=== PATIENT | female | born 1980 | race Caucasian/White ===

== ENCOUNTER → 2017-02-01 | Outpatient (CLI) | payer SELFPAY ==
[~2017-02-01] MED LIST: BIRTH CONTROL PILL PO; CYMBALTA PO; EMBREL; OTEZLA30 MG PO; VITAMIN D310000 UNIT PO; ZOLOFT; [UNRECOGNIZED DRUG - OTHER] PO
--- NOTE | ~2017-02-01 | EKG ---
PATIENT: AREN MIGUEL UNIT #: [id number] Ventricular Rate: 82 BPM Atrial Rate: 82 BPM P-R Interval: 108 ms QRS Duration: 80 ms Q-T Interval: 360 ms QTC Calculation(Bezet): 420 ms P [place]: 25 degrees Calculated R [place]: 32 degrees Calculated T [place]: 14 degrees Diagnosis Line: Sinus rhythm with short MI Diagnosis Line: Otherwise normal ECG Diagnosis Line: No previous ECGs available Diagnosis Line: Confirmed by LILLI BURR MD ([id number]) on Diagnosis Line: 02/03/2017 11:13:44 PM INTERPRETING MD: LENO LEE
--- NOTE | ~2017-02-01 | CR63 ---
[facility] A Service of [facility] & [facility] RADIOLOGY TEXT RESULTS PATIENT: AREN MIGUEL LOCATION: [facility] : 78 UNIT #: [id number] AGE: [address]: Ector Modi III, MD SEX: F ORDER DR: [id number] [facility] [address] [place], [place] [address] [id number] O MR#: [id number] Acc #: [id number] NAME: AREN MIGUEL : 1980 SEX: F STUDY DATE/TIME: 02/01/2017 8:21 UNIT: [facility] ROOM: STUDY DESCRIPTION: CR Chest 2 View Attending Physician: Ector Modi III, M.D. Referring Physician: Ector Modi III, M.D. Ordering Physician: Ector Modi III, M.D. Primary Care Physician: Oli Dsouza M.D. MEDICAL IMAGING REPORT This report is preliminary unless electronic signature is present EXAM Chest, 02/01/2017 HISTORY 36-year-old woman preop clearance for laparoscopic adjustable gastric band placement and possible paraesophageal hernia repair. COMPARISON Portable chest, 12/06/2005 FINDINGS Two-view chest demonstrates normal cardiac size and configuration. Hilar structures and mediastinal contours are preserved. Bilateral lungs are expanded and clear. IMPRESSION Negative chest. Dictated by... Emanuel Hernandez M.D. THIS IS AN ELECTRONICALLY VERIFIED REPORT Emanuel Hernandez M.D. at 02/01/2017 10:34 AM Hanna TD: 02/01/2017 10:22 JOB #: [id number] MEDICAL IMAGING REPORT Page 1 of 1 COPY
--- NOTE | ~2017-02-01 | CR97 ---
[facility] A Service of [facility] & [facility] & [facility] RADIOLOGY TEXT RESULTS PATIENT: AREN MIGUEL LOCATION: [facility] : 78 UNIT #: [id number] AGE: [address]: Ector Modi III, MD SEX: F ORDER DR: [id number] [facility] [address] [place], [place] [address] [id number] O MR#: [id number] Acc #: [id number] NAME: AREN MIGUEL : 1980 SEX: F STUDY DATE/TIME: 02/01/2017 8:33 UNIT: [facility] ROOM: STUDY DESCRIPTION: CR Esophagram Attending Physician: Ector Modi III, M.D. Referring Physician: Ector Modi III, M.D. Ordering Physician: Ector Modi III, M.D. Primary Care Physician: Oli Dsouza M.D. MEDICAL IMAGING REPORT This report is preliminary unless electronic signature is present EXAM Barium esophagram. INDICATIONS Morbid obesity, preop for Lap-Band surgery. FLUOROSCOPY TIME 0.4 minutes and 5 images were taken. FINDINGS The thoracic esophagus is normal in course and caliber. No evidence for hiatal hernia. Mild tertiary contractions are noted. IMPRESSION Mild tertiary contractions, otherwise, unremarkable. Dictated by... Gokul Faust M.D. THIS IS AN ELECTRONICALLY VERIFIED REPORT Gokul Faust M.D. at 02/04/2017 7:25 AM JANINE/paulino TD: 02/01/2017 17:06 JOB #: [id number] MEDICAL IMAGING REPORT Page 1 of 1 COPY
[2017-02-01 09:52] LABS: HEMATOCRIT 36.3 % (35.0-45.0); HEMOGLOBIN 11.9 gm/dL (12.0-16.0); MEAN CELL VOLUME 79.1 FL (83-96); MEAN CORPUSCULAR HGB CONC 32.8 g/dL (30-36); MEAN PLATELET VOLUME 7.7 FL (6.5-11.5); RED BLOOD COUNT 4.59 X10e (3.90-5.30); RED CELL DISTRIBUTION WIDTH 15.4 % (11.0-15.5); WHITE BLOOD COUNT 9.1 X10e3 (4.0-10.5)
[2017-02-01 10:18] LABS: ALBUMIN SERUM 3.8 g/dL (3.5-5.0); BILIRUBIN,TOTAL 0.5 mg/dL (0.2-2.0); BUN/CREATININE RATIO 18.33; CALCIUM SERUM 8.9 mg/dL (8.4-10.2); CREATININE SERUM 0.6 mg/dL (0.6-1.4); GLOM FILT RATE Estimated 115.6 mL/min (>60); POTASSIUM 4.5 mmol/L (3.5-5.1); PROTEIN TOTAL SERUM 7.2 g/dL (6.0-8.3)
== END | disposition home or self-care (01) ==
LOC: CRAD 07:48 → CAMB 08:30
PROVIDERS: Surgery
DX: Z01.818 Encounter for other preprocedural examination (principal); E66.01 Morbid (severe) obesity due to excess calories
CPT/HCPCS: 36415; 71020; 74220; 80053; 80061; 84443; 85027; 93005

== ENCOUNTER 2017-02-13 06:41 | Inpatient (IN) | payer SELFPAY ==
[~2017-02-13] VITALS: Ht 168.9 cm; Wt 102.0 kg
--- NOTE | ~2017-02-13 | CR72 ---
[facility] A Service of [facility] & [facility] RADIOLOGY TEXT RESULTS PATIENT: AREN MIGUEL LOCATION: [facility] [id number] : 78 UNIT #: [id number] AGE: [address]: Ector Modi III, MD SEX: F ORDER DR: [id number] [facility] [address]. [place], [place] [address] [id number] I MR#: [id number] Acc #: [id number] NAME: AREN MIGUEL : 1980 SEX: F STUDY DATE/TIME: 02/14/2017 UNIT: [facility] ROOM: 3 STUDY DESCRIPTION: CR Chest Single View Portable Attending Physician: Ector Modi III, M.D. Ordering Physician: Bunny Caruso M.D. Primary Care Physician: Oli Dsouza M.D. MEDICAL IMAGING REPORT This report is preliminary unless electronic signature is present EXAM Chest portable 02/14/2017 1300 hours HISTORY Shortness of air for 1 day. COMPARISON 02/13/2017 FINDINGS Portable upright chest demonstrates persistently low lung volumes. There is perihilar vascular crowding and some linear density at the left base, unchanged. There is no pleural effusion or pneumothorax. IMPRESSION Persistent low lung volumes with stable linear density at the left base, likely atelectasis or scar. This appears stable. There is no effusion or pneumothorax. Dictated by... Kamila Sevilla M.D. THIS IS AN ELECTRONICALLY VERIFIED REPORT Kamila Sevilla M.D. at 02/14/2017 5:41 PM Ty TD: 02/14/2017 15:48 JOB #: [id number] MEDICAL IMAGING REPORT Page 1 of 1 COPY
--- NOTE | ~2017-02-13 | CR72 ---
[facility] A Service of [facility] & [facility] RADIOLOGY TEXT RESULTS PATIENT: AREN MIGUEL [facility] 76 UNIT #: [id number] AGE: [address]: Ector Modi III, MD SEX: F ORDER DR: [id number] [facility] [address] [place], [place] [address] [id number] O MR#: [id number] Acc #: [id number] NAME: AREN MIGUEL : 1980 SEX: F STUDY DATE/TIME: 02/13/2017 16:23 UNIT: [facility] ROOM: STUDY DESCRIPTION: CR Chest Single View Portable Attending Physician: Ector Modi III, M.D. Ordering Physician: Ector Modi III, M.D. Primary Care Physician: Oli Dsouza M.D. MEDICAL IMAGING REPORT This report is preliminary unless electronic signature is present EXAM Portable chest, 02/13/2017. INDICATIONS Chest pain after gastric band placement today. COMPARISON AP portable chest is compared with 02/01/2017. FINDINGS Lung volumes are quite low, and there is some very mild atelectasis in the bases. No pneumothorax. Heart size normal. Gastric band is present. Dictated by... Lamin Cm Jr., M.D. THIS IS AN ELECTRONICALLY VERIFIED REPORT Lamin Cm Jr., M.D. at 02/14/2017 7:16 AM ASAD/jesenia TD: 02/13/2017 17:33 JOB #: [id number] MEDICAL IMAGING REPORT Page 1 of 1 COPY
--- NOTE | ~2017-02-13 | CR7 ---
[facility] A Service of [facility] RADIOLOGY TEXT RESULTS PATIENT: AREN MIGUEL LOCATION: [facility] : 78 UNIT #: [id number] AGE: [address]: Ector Modi III, MD SEX: F ORDER DR: [id number] [place] [id number] [facility] [place], [place] [address] [id number] O MR#: [id number] Acc #: [id number] NAME: AREN MIGUEL : 1980 SEX: F STUDY DATE/TIME: 02/13/2017926 UNIT: [facility] ROOM: STUDY DESCRIPTION: CR Abdomen Single AP View Attending Physician: Ector Modi III, M.D. Ordering Physician: Ector Modi III, M.D. Primary Care Physician: Oli Dsouza M.D. MEDICAL IMAGING REPORT This report is preliminary unless electronic signature is present EXAM Abdomen, portable, 02/13/2017, 0927 hours. CLINICAL HISTORY 36-year-old woman with morbid obesity. Patient complains of abdominal pain. Lap-band placement today. COMPARISON Preop esophagram, 02/01/2017. FINDINGS Portable supine view of the abdomen demonstrates a new Lap-Band overlying the left T11 costovertebral junction oriented at 55 degrees from vertical. Radiopaque tubing courses inferiorly to a port projecting to the left of the left L5 transverse process. Bowel gas pattern is unremarkable. IMPRESSION Postop Lap-Band placement with band overlying the left T11 costovertebral junction oriented at 55 degrees. Radiopaque tubing courses inferiorly to a port projecting to the left of the L5 transverse process. Dictated by... Kamila Sevilla M.D. THIS IS AN ELECTRONICALLY VERIFIED REPORT Kamila Sevilla M.D. at 02/13/2017 2:35 PM RICK/andres TD: 02/13/2017 10:51 JOB #: [id number] [facility] A Service of [facility] RADIOLOGY TEXT RESULTS PATIENT: AREN MIGUEL [id number] : [birth year] UNIT #: [id number] AGE: [address]: Ector Modi III, MD SEX: F ORDER DR: MEDICAL IMAGING REPORT Page 1 of 1 COPY
--- NOTE | ~2017-02-13 | EKG ---
PATIENT: AREN MIGUEL UNIT #: [id number] Ventricular Rate: 105 BPM Atrial Rate: 105 BPM P-R Interval: 116 ms QRS Duration: 76 ms Q-T Interval: 310 ms QTC Calculation(Bezet): 409 ms P [place]: 51 degrees Calculated R [place]: 57 degrees Calculated T [place]: 12 degrees Diagnosis Line: Sinus tachycardia Diagnosis Line: Nonspecific T wave abnormality Diagnosis Line: Abnormal ECG Diagnosis Line: When compared with ECG of 13-FEB-2017 16:26, Diagnosis Line: Premature ventricular complexes are no longer Diagnosis Line: Present Diagnosis Line: Confirmed by COLLEEN MARCANO MD ([id number]) on 02/16/2017 Diagnosis Line: 8:13:11 AM INTERPRETING MD: KRYS LEE
--- NOTE | ~2017-02-13 | CO ---
Unit #: [id number] #: [id number] Patient: AREN MIGUEL [id number] [address] [place], [place] [address] [id number] MR#: [id number] NAME: AREN MIGUEL ROOM: [facility] Age: 36 Sex: F Admission Date: 02/13/2017 : 1980 Attending Physician: Ector Modi III, M.D. Primary Care Physician: Oli Dsouza M.D. Consultation Date: 02/13/2017 CONSULTATION REPORT REASON FOR ADMISSION Hypotension. HISTORY OF PRESENT ILLNESS Ms. Miguel is a 36-year-old white female who underwent elective bariatric surgery with a lap band insertion earlier this morning. Following the surgery the patient has had problems related to hypotension with blood pressure being as low as 70 mm systolic, and she was started on intravenous fluids. Despite 3.5 liters of intravenous fluid resuscitation, the patient's blood pressure continues to be low and we were asked to see her. She has not had any urine output since her surgery this morning. At the time of my arrival the patient was complaining of pain localized to both inframammary regions, described as sharp shooting pain made worse on deep inspiration, radiating to the right infrascapular region, without any radiation to the retrosternal area. There was no pressure or heaviness in the chest. The patient complained of "shortness of breath," but on direct questioning she admits that it is the painful inspiration which makes her short of breath. She denies any palpitations, is not nauseated and has not been diaphoretic with these pains. She has never experienced similar pains before. The patient considers herself reasonably active. She works as an insurance broker. She has no history of chest discomfort on day-to-day activities. She can walk in a shopping mall without reproducing shortness of breath or chest pain. She denies any history of heart murmur, rheumatic fever, leg edema, orthopnea, nocturnal dyspnea, dizziness, lightheadedness, syncope, near syncope. There is no history of an abnormal EKG and preoperative EKG was also thought to be normal. She has mild hyperlipidemia and gives a history of gestational diabetes mellitus. PAST MEDICAL HISTORY She is the mother of two children, the youngest child being 4.5. During that she was told to have gestational diabetes mellitus. There is no history of eclampsia or preeclampsia. She had a spontaneous during second at 17 weeks. SOCIAL HISTORY She is a nonsmoker heart and a teetotaler. FAMILY HISTORY Positive for her father having heart disease, the nature of which is not known to her. One brother is known to have an athlete's heart. There is no history of myocardial infarction in the family. Unit #: [id number] #: [id number] Patient: AREN MIGUEL PHYSICAL EXAMINATION GENERAL: Young white female who is obese, is uncomfortable, lying semirecumbent in bed because of abdominal pain and inframammary pain. VITALS: Heart rate is 70-90 per minute. Blood pressure is 90/60 mmHg. NECK: There is no jugular venous distension. CHEST: Normal to palpation. There is tenderness on percussion in both inframammary regions. There is diminished air entry in both bases. There are no rales or rhonchi. There are no pericardial friction rubs. HEART: Apical impulse is not palpable. First heart sound is normal. Second heart sound is physiologically split. There is no murmur or gallop. No pericardial friction rub is audible. ABDOMEN: Surgical dressings over abdominal wall stab wounds for laparoscopic procedure performed. There is marked tenderness all over the abdomen. Bowel sounds are absent. RECTAL: Not done. NEUROLOGIC: ELECTRONIC SPECIALIST examination is within normal limits. DIAGNOSTIC STUDIES IMAGING: Chest x-ray shows bilaterally elevated hemidiaphragms because of supine position. Heart size appears normal. There is mild increase in the interstitial markings, probably secondary to vascular crowding. LABORATORY: Hemoglobin preoperatively was 11.9 and at the time of my examination hemoglobin is 6.8. White blood cell count was 23,700 postoperatively. Platelet count is normal at 494,000. BMP shows serum creatinine is 0.8, BUN 13, sodium 137, potassium 4.0, magnesium has not been checked. Liver function studies preoperatively were normal. Alkaline phosphatase was mildly elevated to 98. LDL was 151 with total cholesterol 219. TSH was 2.04. CARDIOVASCULAR: EKG preoperatively showed normal sinus rhythm and within normal limits. Postoperative EKG shows T wave inversion in leads V4, V5 and V6 and an isolated PVC. ASSESSMENT 1. Hypotension, probably secondary to blood loss. 2. Cannot rule out acute kidney injury secondary to hypotension. 3. Inframammary chest pains may be secondary to subdiaphragmatic irritation from gas or secondary to bibasilar atelectasis. 4. Obesity. 5. Status post lap band surgery earlier today. PLAN 1. CT scan of the abdomen and pelvis will be done to rule out any intraperitoneal blood loss as a cause of significant drop in hemoglobin. 2. Serum amylase and lipase would be checked because occasionally pancreatitis could cause T wave abnormalities. 3. T wave abnormalities secondary to ischemia have to be ruled out and cardiac enzymes would be checked and repeated tomorrow morning, though it is unlikely a 36-year-old nonsmoker euglycemic patient with no chest pains to suggest ischemic heart disease would have changes related to perfusion abnormalities. 4. I will check an echocardiogram and Doppler study tomorrow morning. 5. Careful watch on urine output has to be maintained and blood loss anemia treated. Unit #: [id number] #: [id number] Patient: AREN MIGUEL Will follow the patient with you. Thank you very much for associating us in the care of Ms. Miguel. Dictated by... Bunny Caruso M.D. CARROL/denzel TD: 02/14/2017 08:08 JOB #: [id number] CONSULTATION REPORT Page 1 of 1 X Bunny Caruso MD CONSULTATION REPORT
--- NOTE | ~2017-02-13 | CT2 ---
[facility] A Service of [facility] & [facility] RADIOLOGY TEXT RESULTS PATIENT: AREN MIGUEL LOCATION: [facility] 463-01 : [birth year] UNIT #: [id number] AGE: [address]: Ector Modi III, MD SEX: F ORDER DR: [id number] [facility] [address] [place], [place] [address] [id number] O MR#: [id number] Acc #: [id number] NAME: AREN MIGUEL : 1980 SEX: F STUDY DATE/TIME: 02/13/2017 17:27 UNIT: [facility] ROOM: STUDY DESCRIPTION: CT Abd and Pelv W Cont Attending Physician: Ector Modi III, M.D. Ordering Physician: Ector Modi III, M.D. Primary Care Physician: Oli Dsouza M.D. MEDICAL IMAGING REPORT This report is preliminary unless electronic signature is present EXAM CT abdomen and pelvis HISTORY Lap-Band surgery today, hemoglobin dropping, no urine output today while in recovery, bloating, gas, abdomen pain. TECHNIQUE CT abdomen and pelvis performed with intravenous administration of 100 mL Isovue 370. This CT exam was performed with one or more of the following radiation dose reduction techniques: automatic exposure control, adjustment of mA and/or kV according to patient size, and iterative reconstruction. COMPARISON No comparisons CTs of abdomen and pelvis. FINDINGS Dependent atelectasis bilateral lung bases. Small bilateral pleural effusions. Not drainable fluid collections. The liver is unremarkable. Small to moderate volume of fluid in the abdomen and pelvis most pronounced in the pelvis. It contains some hyperdense material and is consistent with evolving hemoperitoneum. I do not see evidence of active extravasation at the time of this examination. There is a small amount of pneumoperitoneum as well. The patient is status post Lap-Band device placement today and the pneumoperitoneum component is felt related to the patient's operative procedure. There is some extraperitoneal products of hemorrhage along the anterior abdomen immediately subjacent to the anterior abdominal wall. The Lap-Band device band component appears normally positioned at level of the gastroesophageal junction. The catheter component appears intact and the port component is implanted over the left lower hemiabdomen. There are small foci of air in the anterior abdominal wall, consistent with recent operative intervention. Liver, STS. [facility] A Service of [facility] & [facility] RADIOLOGY TEXT RESULTS PATIENT: AREN MIGUEL LOCATION: [facility] : [birth year] UNIT #: [id number] AGE: [address]: Ector Modi III, MD SEX: F ORDER DR: gallbladder, spleen, pancreas, adrenal glands, kidneys unremarkable. CT Pelvis: Urinary bladder mildly distended likely physiologic in nature. The uterus unremarkable. No primary adnexal/ovarian abnormality is suggested. There is no pelvic or retroperitoneal adenopathy. The distal esophagus is unremarkable. The small bowel and appendix are unremarkable. Colon unremarkable. There is soft tissue swelling in the left rectus abdominus muscle. There may be a component of left rectus sheath hematoma. Again I do not see active extravasation. I do not see a definite hyperdense material within the left rectus sheath. The soft tissue swelling could simply be postoperative edema. Aorta is normal in caliber. The bony structures show no acute abnormality. IMPRESSION 1. Findings discussed with Dr. Modi at time of this dictation. Hemoperitoneum. Small to moderate volume of mixed density fluid in the abdomen and pelvis predominately in the pelvis with components of hyperdense material felt to represent organized thrombus. At the time of this examination, I see no active extravasation. Followup to resolution of findings recommended. 2. There is a small amount of pneumoperitoneum present felt to be within normal limits for the patient's operative procedure today. 3. Soft tissue swelling in the left rectus abdominus muscle. This may simply reflect postoperative edema. The possibility of some component of rectus sheath hematoma not excluded though I do not see hyperdense products of hemorrhage within the rectus sheath and there is no evidence of active bleeding within the rectus sheath. 4. Small foci of air density in the anterior abdominal wall also favored to reflect the patient's operative intervention today. 5. Bibasilar airspace disease probably atelectatic in nature. Small bilateral pleural effusions. Not drainable fluid collections. 6. Gallbladder, pancreas, kidneys, appendix unremarkable. Remainder of alimentary canal notable only for anticipated postoperative changes of Lap-Band device placement. 7. Please see remainder of ancillary findings in body of report above. Dictated by... Mandeep Coburn M.D. THIS IS AN ELECTRONICALLY VERIFIED REPORT Mandeep Coburn M.D. at 02/14/2017 1:21 PM TAMRAK/benton TD: 02/13/2017 20:17 JOB #: [id number] MEDICAL IMAGING REPORT [facility] A Service of [facility] RADIOLOGY TEXT RESULTS PATIENT: AREN MIGUEL LOCATION: [place] [address] : [birth year] UNIT #: [id number] AGE: [address]: Ector Modi III, MD SEX: F ORDER DR: Page 1 of 1 COPY
--- NOTE | ~2017-02-13 | EKG ---
PATIENT: AREN MIGUEL UNIT #: [id number] Ventricular Rate: 116 BPM Atrial Rate: 116 BPM P-R Interval: 118 ms QRS Duration: 70 ms Q-T Interval: 326 ms QTC Calculation(Bezet): 453 ms P [place]: 36 degrees Calculated R [place]: 15 degrees Calculated T [place]: 9 degrees Diagnosis Line: Sinus tachycardia with occasional Premature Diagnosis Line: ventricular complexes Diagnosis Line: Nonspecific T wave abnormality Diagnosis Line: Abnormal ECG Diagnosis Line: When compared with ECG of 13-FEB-2017 12:29, Diagnosis Line: (unconfirmed) Diagnosis Line: Premature ventricular complexes are now Present Diagnosis Line: Nonspecific T wave abnormality, worse in Inferior Diagnosis Line: leads Diagnosis Line: Nonspecific T wave abnormality, worse in Diagnosis Line: Anterolateral leads Diagnosis Line: Confirmed by COLLEEN MARCANO MD ([id number]) on 02/13/2017 Diagnosis Line: 7:50:13 PM INTERPRETING MD: KRYS LEE
--- NOTE | ~2017-02-13 | EKG ---
PATIENT: AREN MIGUEL UNIT #: [id number] Ventricular Rate: 100 BPM Atrial Rate: 100 BPM P-R Interval: 112 ms QRS Duration: 82 ms Q-T Interval: 370 ms QTC Calculation(Bezet): 477 ms P [place]: 36 degrees Calculated R [place]: 14 degrees Calculated T [place]: 40 degrees Diagnosis Line: Normal sinus rhythm Diagnosis Line: Normal ECG Diagnosis Line: When compared with ECG of 01-FEB-2017 09:04, Diagnosis Line: QT has lengthened Diagnosis Line: Confirmed by COLLEEN MARCANO MD ([id number]) on 02/13/2017 Diagnosis Line: 7:47:44 PM INTERPRETING MD: KRYS LEE
--- NOTE | ~2017-02-13 | OR ---
Unit #: [id number] #: [id number] Patient: AREN MIGUEL [id number] [facility] [address]. [place], [place] [address] [id number] MR#: [id number] NAME: AREN MIGUEL ROOM: 463 Date of Procedure: 02/13/2017 Admission Date: 02/13/2017 Surgeon: Ector Modi III, M.D. : 1980 Attending Physician: Ector Modi III, M.D. Primary Care Physician: Oli Dsouza M.D. OPERATIVE REPORT PREOPERATIVE DIAGNOSIS Chronic obesity. POSTOPERATIVE DIAGNOSIS Chronic obesity. SECONDARY DIAGNOSES Anterior paraesophageal hernia. PROCEDURES PERFORMED Laparoscopic adjustable gastric banding (AP standard with low-profile port) and laparoscopic paraesophageal hernia repair. AIR ANTISUBMARINE OFFICER Mandeep Larsen M.D. SPECIMENS None. COMPLICATIONS None apparent. ESTIMATED BLOOD LOSS Minimal. INDICATIONS FOR PROCEDURE This is a 35-year-old lady, who has chronic obesity with a BMI of 32. She has been through the bariatric program at [facility] and understands risks and benefits of the procedure. DESCRIPTION OF PROCEDURE After consent was obtained, including the risks and benefits of slippage, erosion, port dysfunction, and possible failure of weight loss due to noncompliance, the patient was taken to the operating room and placed in the supine position. General anesthetic was administered and the abdomen was prepped and draped in standard surgical fashion. I began by making a 2 cm incision just above and to the left of the umbilicus. I used a Visiport to enter the peritoneal cavity without any difficulty. C02 pneumoperitoneum was then established. Next, I placed a 5 mm port in the right upper quadrant, a 5 mm Stefanie liver retractor in the subxiphoid region to provide exposure of the gastroesophageal Unit #: [id number] #: [id number] Patient: AREN MIGUEL. Next, a 10 mm port was placed in the left upper quadrant and a 5 mm port was placed in the left lateral subcostal region. I began by performing an examination of the GE junction to evaluate for a hiatal hernia. We then scored the peritoneal attachments overlying the angle of His. I then opened up the clear space in the gastrohepatic ligament, and then using 2 blunt graspers, I identified the small fat pad crossing over the right crura. I swept the fat anterior to the crura off the crura and using the pars flaccida, I created a retrogastric tunnel where the blunt grasper exited at the angle of His. Once I had made this tunnel safely, I then inserted an Allergan AP band into the abdominal cavity. This adjustable gastric band was then place around the upper part of the stomach and fastened and buckled anteriorly. We then tacked the lateral fundus over the band to the proximal pouch with 2 interrupted 0 Ethibond sutures. I then used a third stitch to imbricate the excess anterior stomach by going from the lesser curvature up towards where the last stitch was placed. We then had excellent hemostasis. I removed the Stefanie liver retractor. We then removed the port tubing through the initial port incision. The rest of the ports were removed, and the pneumoperitoneum was released. I then left a small tail on the tubing. We then attached the port to the excess band tubing. We placed a piece of Prolene mesh along the back side of the port and used a Prolene stitch to anchor this mesh in place. We then trimmed the excess mesh so that just a small footprint of mesh was in place behind the port. I then inserted the tubing back into the abdominal cavity, and we placed the port into a small pocket that was made just inferior to where our initial port incision was made. The mesh was in direct contact with the fascia, and this will scar in place to hold the port in place. We then injected all the port sites with 0.25% plain Marcaine, and I reapproximated the skin edges with interrupted 4-0 Vicryl subcuticular sutures. Steri-strips were then applied. The patient tolerated the procedure without any problems and returned to the recovery room in stable condition. ADDENDUM After exposure of the GE junction, the patient was noted to have a small to medium size anterior paraesophageal hernia. I scored the phrenoesophageal ligament, reduced the hernia defect and after identifying both the right and left crura, I reapproximated the defect with an interrupted 0 Ethibond wnedhw-[id number]-jkior suture. I then proceeded with the case as listed above. Dictated by... Ector Modi III, M.D. VCL/mya TD: 02/14/2017 00:33 JOB #: [id number] Unit #: [id number] #: [id number] Patient: AREN MIGUEL OPERATIVE REPORT Page 1 of 1 X Ector Modi III, MD X PROCEDURE OPERATIVE NOTE
--- NOTE | ~2017-02-13 | CO ---
Unit #: [id number] #: [id number] Patient: AREN MIGUEL [id number] [facility]. [place], [place] [address] [id number] MR#: [id number] NAME: AREN MIGUEL ROOM: 463 Age: 36 Sex: F Admission Date: 02/13/2017 : 1980 Attending Physician: Ector Modi III, M.D. Primary Care Physician: Oli Dsouza M.D. CONSULTATION REPORT HISTORY Ms. Miguel is a 36-year-old female who underwent Lap-Band procedure today for chronic morbid obesity. We were called to see the patient for ICU consultation. Postoperatively she was transported to the postop floor. She became hypotensive. She was bolused with fluid and has received 4 liters of fluid, and her blood pressure has stabilized at this point. She did receive some short, small doses of Navin-Synephrine apparently. She has been seen by Dr. Caruso. H and H's have been checked and show a fall in hemoglobin. Her pre-op hemoglobin on February 01 was 11.1. Today at noon after surgery, it was 8.3, and presently at 4:17 p.m. it has fallen to 6.8. Her initial white count on the was 9,100, and today at noon it was 23,700. She said she was in her normal state of health preoperatively. She had no fever, chills, sweats, chest pain, nausea or vomiting. Her chest x-ray reveals low lung volumes, possibly some minimal atelectasis in the bases but no major consolidation or significant infiltrate or pulmonary vascular congestion. PAST MEDICAL HISTORY Significant for some anxiety, depression, allergic rhinitis. She has some psoriasis. ALLERGIES She has no known allergies. HOME MEDICATIONS She is on methylphenidate ER, Otezla and vitamin D. FAIR HISTORIAN Some depression and anemia, cholesterol, hypertension. SOCIAL HISTORY Drinks 7 or less drinks per week. Denies illicit drug use. Never smoker. REVIEW OF SYSTEMS Negative, as noted above. PHYSICAL EXAMINATION GENERAL: White female. VITAL SIGNS: Blood pressure is 102/62, pulse 122, respiratory rate 18, afebrile. HEENT: Normocephalic, atraumatic. Pupils are equal, round and reactive. Appears pale. NECK: Neck is supple. Trachea midline. RESPIRATORY: Lungs clear anteriorly and laterally. Unit #: [id number] #: [id number] Patient: AREN MIGUEL CARDIAC: Tachycardic. Could not appreciate murmur, rub or gallop. ABDOMEN: Tender, postop. EXTREMITIES: Without clubbing, cyanosis or edema. No obvious bruising could be seen on her sides. DIAGNOSTIC STUDIES LABORATORY STUDIES: As noted. IMPRESSION Hypotension, likely secondary to blood loss. PLAN She is scheduled for CT of the abdomen and pelvis. Dr. Caruso is seeing. Will rule out SC. Echocardiogram has been ordered. Agree with checking amylase and lipase. Will support on pressors as needed, support in ICU, place on supplemental oxygen. SCD hose. Type and cross and transfuse. Further recommendations pending this. Dictated by... Titus Morales M.D. KELLY/surjit TD: 02/14/2017 09:15 JOB #: [id number] CONSULTATION REPORT Page 1 of 1 X Titus Morales MD X CONSULTATION REPORT
[~2017-02-13 06:41] MED LIST changes: -OTEZLA30 MG PO; -VITAMIN D310000 UNIT PO; -[UNRECOGNIZED DRUG - OTHER] PO
[2017-02-13] MEDS ORDERED: [UNRECOGNIZED DRUG - OTHER] PO (09:04)
[2017-02-13] MEDS ORDERED: OTEZLA30 MG PO (09:04)
[2017-02-13] MEDS ORDERED: VITAMIN D310000 UNIT PO (09:05)
[2017-02-13 12:44] LABS: BASOPHIL# 0.1 X10e3 (0-0.3); BASOPHIL% 0.2 % (0-2.5); HEMATOCRIT 25.4 % (35.0-45.0); HEMOGLOBIN 8.3 gm/dL (12.0-16.0); LYMPHOCYTE# 0.8 X10e3 (1.0-3.5); LYMPHOCYTE% 3.5 % (17.0-45.0); MEAN CELL VOLUME 80.5 FL (83-96); MEAN CORPUSCULAR HEMOGLOBIN 26.2 PG (28-34); MEAN CORPUSCULAR HGB CONC 32.6 g/dL (30-36); MEAN PLATELET VOLUME 7.5 FL (6.5-11.5); MONOCYTE# 0.4 X10e3 (0-1.0); MONOCYTE% 1.6 % (3.0-12.0); NEUTROPHIL# 22.5 X10e3 (1.5-7.1); NEUTROPHIL% 94.7 % (40-75); PLATELET COUNT 494 X10e3 (140-420); RED BLOOD COUNT 3.16 X10e (3.90-5.30); RED CELL DISTRIBUTION WIDTH 15.2 % (11.0-15.5); WHITE BLOOD COUNT 23.7 X10e3 (4.0-10.5)
[2017-02-13 12:46] LABS: DIFF IND YES
[2017-02-13 12:56] LABS: ANISOCYTOSIS SL; HYPOCHROMIA SL; MICROCYTOSIS SL; PLATELET ESTIMATE INCREASED (NORMAL)
[2017-02-13 13:09] LABS: BUN/CREATININE RATIO 16.25; CREATININE SERUM 0.8 mg/dL (0.6-1.4); GLOM FILT RATE Estimated 93.6 mL/min (>60)
[2017-02-13 13:49] LABS: HEMATOCRIT 23.6 % (35.0-45.0); HEMOGLOBIN 7.9 gm/dL (12.0-16.0)
[2017-02-13 16:40] LABS: HEMATOCRIT 20.3 % (35.0-45.0)
[2017-02-13 16:43] LABS: HEMOGLOBIN 6.8 gm/dL (12.0-16.0)
[2017-02-13 17:45] LABS: CK TOTAL 43 IU/L (26-140)
[2017-02-13 22:20] LABS: BASOPHIL% 0.1 % (0-2.5); HEMATOCRIT 26.1 % (35.0-45.0); HEMOGLOBIN 8.6 gm/dL (12.0-16.0); LYMPHOCYTE# 0.5 X10e3 (1.0-3.5); LYMPHOCYTE% 2.7 % (17.0-45.0); MEAN CELL VOLUME 80.8 FL (83-96); MEAN CORPUSCULAR HEMOGLOBIN 26.5 PG (28-34); MEAN CORPUSCULAR HGB CONC 32.8 g/dL (30-36); MEAN PLATELET VOLUME 7.6 FL (6.5-11.5); MONOCYTE# 0.9 X10e3 (0-1.0); MONOCYTE% 4.4 % (3.0-12.0); NEUTROPHIL# 18.1 X10e3 (1.5-7.1); NEUTROPHIL% 92.8 % (40-75); PLATELET COUNT 364 X10e3 (140-420); RED BLOOD COUNT 3.23 X10e (3.90-5.30); RED CELL DISTRIBUTION WIDTH 15.9 % (11.0-15.5); WHITE BLOOD COUNT 19.5 X10e3 (4.0-10.5)
[2017-02-13 22:21] LABS: DIFF IND YES
[2017-02-13 22:35] LABS: PLATELET ESTIMATE NORMAL (NORMAL)
[2017-02-13 22:36] LABS: HYPOCHROMIA SL
[2017-02-13 22:37] LABS: ANISOCYTOSIS SL; POIKILOCYTOSIS SL; VACUOLIZATION P
[2017-02-13 22:53] LABS: AMYLASE 11 U/L (0-46); LIPASE 12 U/L (22-51)
[2017-02-14 06:23] LABS: BUN/CREATININE RATIO 14.28; CALCIUM SERUM 8.2 mg/dL (8.4-10.2); CREATININE SERUM 0.7 mg/dL (0.6-1.4); GLOM FILT RATE Estimated 109.9 mL/min (>60); POTASSIUM 4.8 mmol/L (3.5-5.1)
[2017-02-14 06:41] LABS: BASOPHIL# 0.1 X10e3 (0-0.3); BASOPHIL% 0.3 % (0-2.5); HEMATOCRIT 26.2 % (35.0-45.0); HEMOGLOBIN 9.1 gm/dL (12.0-16.0); LYMPHOCYTE# 1.4 X10e3 (1.0-3.5); LYMPHOCYTE% 7.9 % (17.0-45.0); MEAN CELL VOLUME 80.3 FL (83-96); MEAN CORPUSCULAR HEMOGLOBIN 27.8 PG (28-34); MEAN CORPUSCULAR HGB CONC 34.6 g/dL (30-36); MEAN PLATELET VOLUME 7.7 FL (6.5-11.5); MONOCYTE# 1.3 X10e3 (0-1.0); MONOCYTE% 7.6 % (3.0-12.0); NEUTROPHIL% 84.2 % (40-75); PLATELET COUNT 334 X10e3 (140-420); RED BLOOD COUNT 3.26 X10e (3.90-5.30); RED CELL DISTRIBUTION WIDTH 16.2 % (11.0-15.5); WHITE BLOOD COUNT 17.8 X10e3 (4.0-10.5)
[2017-02-14 06:43] LABS: %MB 3.2 % (0.0-4.0); MB 1.9 ng/ml
[2017-02-14 06:51] LABS: DIFF IND NO
[2017-02-15 04:44] LABS: BASOPHIL% 0.2 % (0-2.5); HEMATOCRIT 20.8 % (35.0-45.0); LYMPHOCYTE% 8.5 % (17.0-45.0); MEAN CELL VOLUME 81.2 FL (83-96); MEAN CORPUSCULAR HEMOGLOBIN 27.6 PG (28-34); MEAN PLATELET VOLUME 7.5 FL (6.5-11.5); MONOCYTE# 0.8 X10e3 (0-1.0); MONOCYTE% 6.8 % (3.0-12.0); NEUTROPHIL# 9.8 X10e3 (1.5-7.1); NEUTROPHIL% 84.5 % (40-75); PLATELET COUNT 252 X10e3 (140-420); RED BLOOD COUNT 2.56 X10e (3.90-5.30); WHITE BLOOD COUNT 11.6 X10e3 (4.0-10.5)
[2017-02-15 04:45] LABS: HEMOGLOBIN 7.1 gm/dL (12.0-16.0)
[2017-02-15 04:46] LABS: DIFF IND NO
[2017-02-15 15:05] LABS: BASOPHIL% 0.2 % (0-2.5); EOSINOPHIL% 0.2 % (0.0-7.0); HEMATOCRIT 20.7 % (35.0-45.0); LYMPHOCYTE# 1.2 X10e3 (1.0-3.5); MEAN CELL VOLUME 81.9 FL (83-96); MEAN CORPUSCULAR HEMOGLOBIN 27.7 PG (28-34); MEAN CORPUSCULAR HGB CONC 33.9 g/dL (30-36); MONOCYTE# 0.8 X10e3 (0-1.0); MONOCYTE% 6.7 % (3.0-12.0); NEUTROPHIL# 9.7 X10e3 (1.5-7.1); NEUTROPHIL% 82.9 % (40-75); PLATELET COUNT 270 X10e3 (140-420); RED BLOOD COUNT 2.53 X10e (3.90-5.30); RED CELL DISTRIBUTION WIDTH 16.1 % (11.0-15.5); WHITE BLOOD COUNT 11.7 X10e3 (4.0-10.5)
[2017-02-15 15:09] LABS: DIFF IND YES
[2017-02-15 15:29] LABS: HYPOCHROMIA MOD; PLATELET ESTIMATE NORMAL (NORMAL); POIKILOCYTOSIS SL
[2017-02-16 03:45] LABS: BASOPHIL% 0.3 % (0-2.5); EOSINOPHIL# 0.1 X10e3 (0-0.7); HEMATOCRIT 19.2 % (35.0-45.0); LYMPHOCYTE# 1.4 X10e3 (1.0-3.5); LYMPHOCYTE% 16.5 % (17.0-45.0); MEAN CELL VOLUME 82.4 FL (83-96); MEAN CORPUSCULAR HEMOGLOBIN 27.7 PG (28-34); MEAN CORPUSCULAR HGB CONC 33.6 g/dL (30-36); MEAN PLATELET VOLUME 7.5 FL (6.5-11.5); MONOCYTE# 0.7 X10e3 (0-1.0); MONOCYTE% 8.4 % (3.0-12.0); NEUTROPHIL# 6.2 X10e3 (1.5-7.1); NEUTROPHIL% 73.8 % (40-75); PLATELET COUNT 240 X10e3 (140-420); RED BLOOD COUNT 2.33 X10e (3.90-5.30); RED CELL DISTRIBUTION WIDTH 16.4 % (11.0-15.5); WHITE BLOOD COUNT 8.4 X10e3 (4.0-10.5)
[2017-02-16 03:50] LABS: DIFF IND NO; HEMOGLOBIN 6.5 gm/dL (12.0-16.0)
[2017-02-16 10:12] LABS: HEMATOCRIT 23.4 % (35.0-45.0)
[2017-02-16 15:11] LABS: HEMATOCRIT 23.4 % (35.0-45.0); HEMOGLOBIN 7.8 gm/dL (12.0-16.0)
[2017-02-16 18:58] LABS: HEMOGLOBIN 7.9 gm/dL (12.0-16.0)
== END 2017-02-16 19:45 | disposition home or self-care (01) | DRG 619 ==
LOC: CSUR 06:41 → CPACUOF 16:05 → C4C 16:14 → CPACUOF 16:14 → CSUR 16:14 → CICCU3 21:12 → CPACUOF 21:12 → CICCU3 21:12 → C4C 02-14 08:34
PROVIDERS: Internal Medicine Cardiovascular Disease; Surgery
PROC: 0BQS4ZZ (ICD-10-PCS; 2017-02-13)
PROC: 0BQR4ZZ (ICD-10-PCS; 2017-02-13)
PROC: 0DV64CZ Restriction of Stomach with Extraluminal Device, Percutaneous Endoscopic Approach (ICD-10-PCS; principal; 2017-02-13 07:30)
PROC: 30233N1 Transfusion of Nonautologous Red Blood Cells into Peripheral Vein, Percutaneous Approach (ICD-10-PCS; 2017-02-14)
PROC: B24BYZZ Ultrasonography of Heart with Aorta using Other Contrast (ICD-10-PCS; 2017-02-14)
DX: E66.01 Morbid (severe) obesity due to excess calories (principal); R57.1 Hypovolemic shock; J98.11 Atelectasis; D62 Acute posthemorrhagic anemia; F41.9 Anxiety disorder, unspecified; F32.9 Major depressive disorder, single episode, unspecified; J30.9 Allergic rhinitis, unspecified; Z83.2 Family history of diseases of the blood and blood-forming organs and certain disorders involving the immune mechanism; Z82.61 Family history of arthritis; Z81.8 Family history of other mental and behavioral disorders; Z82.62 Family history of osteoporosis; Z80.3 Family history of malignant neoplasm of breast; Z82.49 Family history of ischemic heart disease and other diseases of the circulatory system; I95.81 Postprocedural hypotension; E78.5 Hyperlipidemia, unspecified; Z68.32 Body mass index [BMI] 32.0-32.9, adult; K44.9 Diaphragmatic hernia without obstruction or gangrene; D72.829 Elevated white blood cell count, unspecified; L40.9 Psoriasis, unspecified; R00.0 Tachycardia, unspecified
CPT/HCPCS: 36430; 71010; 74000; 74177; 80048; 82150; 82550; 82553; 82947; 83690; 84484; 84703; 85014; 85018; 85025; 86850; 86900; 86901; 86922; 86923; 93005; 93306; 94760; C1781; J0330; J0690; J1100; J1650; J1885; J2250; J2270; J2405; J2550; J2710; J3010; P9016; Q9967